=== PATIENT | female | born 1995 | race Caucasian/White ===

== ENCOUNTER 2016-03-27 02:47 | Emergency (ER) | payer BC, MEDICAID ==
[~2016-03-27] VITALS: Ht 162.6 cm; Wt 63.0 kg
[2016-03-27 02:50] VITALS: BP 115/73; PULSE 77; RESP 20; TEMP 98.4; O2SAT 96
[2016-03-27] MEDS ORDERED: DICL50TA3 PO (03:32)
[2016-03-27] MEDS ORDERED: ACETAMINOPHEN/HYDROcodone 325 MG/5 MG TAB PO ONE (03:45)
--- NOTE | 2016-03-27 04:13 | PD ---
HPI Chief Complaint: Fall Time Seen by Provider: 04:08 Travel History International Travel<30 days: No Contact w/Intl Traveler<30days: No Traveled to known affect area: No History of Present Illness HPI 20-year-old white female presents to emergency department with complains of left foot pain after a fall at work this evening. The patient works as a dancer. She states that she was on high heels when she twisted her foot. She denies any other injuries. She states that the pain is mild but is moderate when she attempts to weight-bear. PFSH Past Medical History Medical History: Denies Significant Hx Diminished Hearing: No Tetanus Vaccination: Unknown ?: Not LMP: A MONTH AGO--LATE Past Surgical History Surgical History: No Previous Surgery Social History Alcohol Use: Yes Tobacco Use: Yes Substance Use: No Allergies-Medications (Allergen,Severity, Reaction): Coded Allergies: No Known Allergies (Unverified , 03/27/16) Reported Meds & Prescriptions Reported Meds & Active Scripts Active Diclofenac Sodium DR (Diclofenac Sodium) 50 Mg Tabdr 50 Mg PO TID Review of Systems Except as stated in HPI: all other systems reviewed are Neg Physical Exam Narrative GENERAL: Well-nourished, well-developed patient. SKIN: Warm and dry. HEAD: Normocephalic. EYES: No scleral icterus. No injection or drainage. NECK: Supple, trachea midline. No JVD or lymphadenopathy. CARDIOVASCULAR: Regular rate and rhythm without murmurs, gallops, or rubs. RESPIRATORY: Breath sounds equal bilaterally. No accessory muscle use. GASTROINTESTINAL: Abdomen soft, non-tender, nondistended. MUSCULOSKELETAL: No cyanosis, or edema. Examination of the left lower extremity reveals pain across the fifth metatarsal. There is no erythema, edema or skin breakdown. No pain in the toes, heel, Achilles, ankle. She has intact sensation with good distal pulses. BACK: Nontender without obvious deformity. No CVA tenderness. Data Data Last Documented VS Vital Signs Date Time Temp Pulse Resp B/P Pulse Ox O2 Delivery O2 Flow Rate FiO2 03/27/16 02:50 98.4 77 20 115/73 96 Room Air Orders Foot, Complete (Nyd6ray) (03/27/16 03:03) Ice/Cold Pack (03/27/16 03:03) Splint Or Brace Apply/Monitor (03/27/16 03:31) Crutches (03/27/16 03:31) Acetamin-Hydrocod 325-5 Mg (Sherman 5-325 (03/27/16 03:45) MDM Medical Decision Making Medical Screen Exam Complete: Yes Emergency Medical Condition: Yes Medical Record Reviewed: Yes Interpretation(s) Left foot: Negative for acute bony injury Differential Diagnosis MDM: High Differential diagnoses: Fracture, sprain, strain, dislocation, contusion, neurovascular injury Narrative Course X-ray of the left foot is negative. Patient given Elpidio wrap, crutches, ice pack and Lortab 5 a grams by mouth. This is left foot sprain Diagnosis Primary Impression: Sprain of left foot Patient Instructions: Narcotic given in the ED, General Instructions Additional Instructions: Rest. Elevation. Ice packs for the next 3 days. Elpidio wrap and crutches. No weight-bearing and then progress to weight-bearing as tolerated. Medications as directed Follow-up with an orthopedist or your doctor in one week. Return to the ER if any problems Med/Other Pt SpecificInfo: Prescription(s) given Scripts Diclofenac Sodium DR 50 Mg Tabdr50 Mg PO TID #21 TAB Prov:Johnny Lewis MD 03/27/16 Disposition: 01 DISCHARGE HOME Condition: Stable Quentin Davis Mar 27, 2016 04:13
--- NOTE | 2016-03-27 04:27 | RADRPT ---
EXAM DATE/TIME: 03/27/2016 03:17 [facility] COMPARISON: No previous studies available for comparison. INDICATIONS : Patient states she fell, lateral side pain. MEDICAL HISTORY : None. SURGICAL HISTORY : None. ENCOUNTER: Initial ACUITY: 1 day PAIN SCORE: 7/10 LOCATION: Left Foot FINDINGS: Three view examination of the left foot demonstrates no soft tissue swelling, dislocation, or fractur e. The tarsal bones appear intact. The interphalangeal and metatarsophalangeal joints are intact. The calcaneus is intact. Bony mineralization is normal. CONCLUSION: Unremarkable examination of the left foot. Earl Nassar Jr., MD on March 27, 2016 at 4:25 Board Certified Radiologist. This report was verified electronically.
== END 2016-03-27 04:42 | disposition home or self-care (01) ==
LOC: NEPB 02:47
DX: S93.602A Unspecified sprain of left foot, initial encounter (principal); Z72.0 Tobacco use; W19.XXXA Unspecified fall, initial encounter; Y99.0 Civilian activity done for income or pay
CPT/HCPCS: 73630; 99283; E0113